=== PATIENT | male | born 2005 | race African-American/Black ===

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

== ENCOUNTER 2024-06-05 14:49 | Emergency (ER) | payer OTHER ==
[2024-06-05] MEDS: Lidocaine 1% with EPINEPHrine 1:100,000 10 ML MDV INJECT STA (15:37)
[2024-06-05] MEDS: Diphtheria,Pertussis(Acell),Tetanus Vaccine 0.5 ML Syringe IM ONE (15:37)
== END 2024-06-05 17:23 | disposition home or self-care (01) ==
LOC: MW.ED 14:49
DX: S01.81XA Laceration without foreign body of other part of head, initial encounter (principal); V87.8XXA Person injured in other specified noncollision transport accidents involving motor vehicle (traffic), initial encounter; Z75.8 Other problems related to medical facilities and other health care
CPT/HCPCS: 12013; 90471; 90715; 99282-25; 99283; J3490

== ENCOUNTER 2024-06-16 00:37 | Emergency (ER) | payer SELFPAY | END 2024-06-16 01:05 | LOC: MW.ED 00:37 | DX: Z02.89 Encounter for other administrative examinations (principal); Z48.02 Encounter for removal of sutures | CPT/HCPCS: 99281; 99284 ==